=== PATIENT | male | born 1990 | race African-American/Black ===

== ENCOUNTER 2019-08-29 00:30 | Emergency (ER) | payer SELFPAY ==
[~2019-08-29] VITALS: Ht 185.4 cm; Wt 72.6 kg
[2019-08-29 01:15] VITALS: BP 115/74
== END 2019-08-29 01:33 | disposition home or self-care (01) ==
LOC: ER 00:33
DX: H10.9 Unspecified conjunctivitis (principal)

== ENCOUNTER → 2021-04-13 | Emergency (ER) | payer MEDICAID ==
[~2021-04-13] VITALS: Ht 185.4 cm; Wt 72.6 kg
[~2021-04-13] MED LIST: HYDROcodone-ACET 5/325MG TAB PO ONE; ONDANSETRON ODT 4 MG TAB PO ONE
[2021-04-13 23:52] VITALS: BP 110/65
== END | disposition home or self-care (01) ==
LOC: ER 22:40
DX: S62.391A Other fracture of second metacarpal bone, left hand, initial encounter for closed fracture (principal); S00.01XA Abrasion of scalp, initial encounter; V89.2XXA Person injured in unspecified motor-vehicle accident, traffic, initial encounter; Y93.89 Activity, other specified; Y92.89 Other specified places as the place of occurrence of the external cause; Y99.8 Other external cause status
CPT/HCPCS: 29125; 73130; Q0162

== ENCOUNTER 2022-01-16 22:50 | Emergency (ER) | payer MEDICAID ==
[~2022-01-16] VITALS: Ht 185.4 cm; Wt 74.8 kg
[2022-01-16 22:58] VITALS: BP 127/77
== END 2022-01-17 04:24 | disposition left against medical advice (07) ==
LOC: ER 22:50
DX: M79.672 Pain in left foot (principal); Z53.21 Procedure and treatment not carried out due to patient leaving prior to being seen by health care provider